=== PATIENT | male | born 1935 | race Caucasian/White ===

== ENCOUNTER 2020-05-29 13:34 | Emergency (ER) | payer OTHER ==
[~2020-05-29] VITALS: Ht 188 cm; Wt 68.0 kg
[~2020-05-29 13:34] MED LIST: ATACAND4 MG; LIPITOR20 MG
== END 2020-05-29 18:15 | disposition home or self-care (01) ==
LOC: ER 13:34
DX: G45.8 Other transient cerebral ischemic attacks and related syndromes (principal); M62.81 Muscle weakness (generalized); R20.0 Anesthesia of skin; I10 Essential (primary) hypertension; Z03.818 Encounter for observation for suspected exposure to other biological agents ruled out

== ENCOUNTER 2020-08-25 11:01 | Outpatient (CLI) | payer OTHER | END 2020-08-25 11:15 | disposition home or self-care (01) | LOC: NUCLEAR 11:01 | PROVIDERS: ATTEND Internal Medicine Cardiovascular Disease | DX: I48.91 Unspecified atrial fibrillation (principal) ==

== ENCOUNTER 2020-12-01 08:00 | Outpatient (CLI) | payer OTHER | END 2020-12-01 08:30 | disposition home or self-care (01) | LOC: PPH VACUNA 08:00 | DX: Z23 Encounter for immunization (principal) ==

== ENCOUNTER → 2021-01-11 13:34 | Outpatient (CLI) | payer OTHER | END | disposition home or self-care (01) | LOC: LAB 13:34 | PROVIDERS: ATTEND Radiology Diagnostic Radiology | DX: K40.31 Unilateral inguinal hernia, with obstruction, without gangrene, recurrent (principal) ==

== ENCOUNTER 2021-01-15 08:45 | Outpatient (CLI) | payer OTHER | END 2021-01-15 08:52 | disposition home or self-care (01) | LOC: TOM 08:45 | PROVIDERS: ATTEND Surgery | DX: K59.09 Other constipation (principal); K40.31 Unilateral inguinal hernia, with obstruction, without gangrene, recurrent; K76.0 Fatty (change of) liver, not elsewhere classified; K57.90 Diverticulosis of intestine, part unspecified, without perforation or abscess without bleeding | CPT/HCPCS: 74177; Q9965 ==

== ENCOUNTER → 2024-01-05 | Emergency (ER) | payer OTHER ==
[~2024-01-05] VITALS: Ht 180.3 cm; Wt 66.7 kg
[~2024-01-05] MED LIST changes: +AMLODIPINE BESYL5 MG PO; +ATORVASTATIN CA40 MG PO; +DIOVAN40 MG; +ECOTRIN81 MG; +KETOROLAC TROMETHAMINE 30 MG VIAL IV STA; +RINGERS SOLUTION,LACTATED 1,000 ML IV STA; +SYNTHROID75 MCG; +TRAMADOL HCL 50 MG TABLET PO ONE
[2024-01-05 23:09] LABS: HEMATOCRIT 40.4 % (39.0-48.0); HEMOGLOBIN 14.1 g/dL (13-16.00); MEAN CORPUSCULAR HEMOGLOBIN 30.3 pg (27.00-32.0); MEAN CORPUSCULAR HGB CONC 34.8 g/dl (32.0-36.0); PLATELET COUNT 133 K/uL (150-450); RED BLOOD COUNT 4.65 M/uL (4.00-6.00); RED CELL DISTRIBUTION WIDTH 14.9 % (11.5-14.5)
[2024-01-06 08:21] LABS: INR 1.17; PARTIAL THROMBOPLASTIN TIME 28.8 SECONDS (22.0-34.0); PROTHROMBIN TIME 12.6 SECONDS (9.0-11.5)
[2024-01-06 08:24] LABS: ALBUMIN 3.9 gm/dL (3.4-5.0); BILIRUBIN TOTAL 1.45 mg/dL (0.3-1.2); CALCIUM 9.4 mg/dL (8.5-10.1); CREATININE SERUM 1.23 mg/dL (0.70-1.30); GFR 55.79; GLOBULINA 3.2 G/DL (2.4-3.5); POTASSIUM 4.04 mEq/L (3.5-5.1); TOTAL PROTEIN 7.1 gm/dL (6.4-8.2)
== END | disposition home or self-care (01) ==
LOC: ER 21:23
PROVIDERS: General Practice
DX: S00.11XA Contusion of right eyelid and periocular area, initial encounter (principal); W06.XXXA Fall from bed, initial encounter; Y93.89 Activity, other specified; Y92.013 Bedroom of single-family (private) house as the place of occurrence of the external cause; E78.00 Pure hypercholesterolemia, unspecified; E03.8 Other specified hypothyroidism; I10 Essential (primary) hypertension; S12.120A Other displaced dens fracture, initial encounter for closed fracture
CPT/HCPCS: 36415; 70450; 70486; 70490; 96365; 99285; J1885

== ENCOUNTER 2024-01-11 09:22 | Inpatient (IN) | payer OTHER ==
[~2024-01-11] VITALS: Ht 175.3 cm; Wt 63.5 kg
[~2024-01-11 09:22] MED LIST changes: -AMLODIPINE BESYL5 MG PO; -ATORVASTATIN CA40 MG PO; -KETOROLAC TROMETHAMINE 30 MG VIAL IV STA; -RINGERS SOLUTION,LACTATED 1,000 ML IV STA; -TRAMADOL HCL 50 MG TABLET PO ONE
[2024-01-11] MEDS ORDERED: PIPERACILLIN/TAZOBACTAM SODIUM 4.5 GM VIAL IV SCH (09:53)
[2024-01-11] MEDS ORDERED: METHYLPREDNISOLONE SOD SUCC 40 MG VIAL IV ONE (10:00)
[2024-01-11] MEDS ORDERED: LEVALBUTEROL HCL 1.25 MG/3 ML SOLUTION IH SCH ×2 (10:00→10:15)
[2024-01-11] MEDS ORDERED: IPRATROPIUM BROMIDE 0.5 MG/2.5 ML AMPUL.NEB IH ONE (10:00)
[2024-01-11] MEDS ORDERED: 0.9 % SODIUM CHLORIDE 1,000 ML IV ONE (10:00)
[2024-01-11] MEDS ORDERED: FAMOtidine 10 MG/ML (4ML VIAL) IV ONE (10:00)
[2024-01-11 10:15] LABS: ABG PH 7.473 (7.35-7.45); ABG pCO2 39.6 mmHg (35-45); BASE EXCESS 4.5 mmol/l; BICARBONATE 28.4 mmol/l (23-25); SaO2 76.2 %; Tco2 29.6 mmol/l
[2024-01-11 10:20] LABS: HEMATOCRIT 38.1 % (39.0-48.0); HEMOGLOBIN 13.1 g/dL (13-16.00); MEAN CELL VOLUME 87.5 fL (80.0-100.00); MEAN CORPUSCULAR HEMOGLOBIN 30.1 pg (27.00-32.0); MEAN CORPUSCULAR HGB CONC 34.4 g/dl (32.0-36.0); PLATELET COUNT 171 K/uL (150-450); RED BLOOD COUNT 4.35 M/uL (4.00-6.00); RED CELL DISTRIBUTION WIDTH 14.4 % (11.5-14.5)
[2024-01-11 10:23] LABS: ERYTHROCYTE SEDIMENTATION RATE 50 mm/hr
[2024-01-11 11:37] LABS: INR 1.08; PARTIAL THROMBOPLASTIN TIME 27.8 SECONDS (22.0-34.0); PROTHROMBIN TIME 11.7 SECONDS (9.0-11.5)
[2024-01-11 11:42] LABS: PH,URINE 5.5 (5.0-8.0); URINE APPEARANCE Clear; URINE BILIRRUBIN Negative (NEGATIVE); URINE BLOOD Negative; URINE COLOR Dark Yellow; URINE GLUCOSE Negative (NEGATIVE); URINE KETONE Trace (NEGATIVE); URINE LEUKOCYTE Negative; URINE NITRATE Negative
[2024-01-11 11:42] LABS: ALBUMIN 3.1 gm/dL (3.4-5.0); BILIRUBIN TOTAL 1.4 mg/dL (0.3-1.2); CALCIUM 9.4 mg/dL (8.5-10.1); CREATININE SERUM 1.03 mg/dL (0.70-1.30); GFR 68.47; GLOBULINA 3.9 G/DL (2.4-3.5); POTASSIUM 3.41 mEq/L (3.5-5.1)
[2024-01-11 11:46] LABS: URINE BACTERIA 21.4 uL (0.0-1933); URINE EPITHELIAL CELLS 3.2 uL (0.0-38.8); URINE RBC 12.8 uL (0.0-20.8); URINE WBC 9.4 uL (0.0-23.2)
[2024-01-11 12:12] LABS: C-REACTIVE PROTEIN 16.6 MG/DL (0.00-0.29)
[2024-01-11 12:24] LABS: D DIMER 4.05 MG/L
[2024-01-11 12:41] LABS: URINE CAST 0.45 uL (0.0-1.40); URINE PROTEIN 100 (NEGATIVE)
[2024-01-11 12:42] LABS: ABG PO2 37.3 mmHg (80-100); allen test SATISFACTORY; puncture site RADIAL RIGHT
[2024-01-11 13:00] LABS: ABG PH 7.483 (7.35-7.45); ABG PO2 184.8 mmHg (80-100); ABG pCO2 36.2 mmHg (35-45); BASE EXCESS 3.3 mmol/l; BICARBONATE 26.6 mmol/l (23-25); SaO2 99.7 %; Tco2 27.7 mmol/l; allen test SATISFACTORY; o2 32 %; puncture site RADIAL RIGHT
[2024-01-11 13:00] LABS: o2 21 %
[2024-01-11] MEDS ORDERED: ATORVASTATIN CA40 MG PO (14:28)
[2024-01-11] MEDS ORDERED: AMLODIPINE BESYL5 MG PO (14:28)
[2024-01-11] MEDS ORDERED: VANCOMYCIN HCL 1,000 MG VIAL IV SCH (19:42)
[2024-01-11] MEDS ORDERED: ONDANSETRON HCL 4 MG in 0.9 % SODIUM CHLORIDE 50 ML IV PRN (19:45)
[2024-01-11] MEDS ORDERED: MEROPENEM 500 MG/VIAL VIAL IV SCH (20:00)
[2024-01-11] MEDS ORDERED: ENALAPRILAT DIHYDRATE 1.25 MG/ML VIAL IV PRN (20:00)
[2024-01-11] MEDS ORDERED: ACETAMINOPHEN 500 MG GEL..CAP PO PRN (20:00)
[2024-01-11 20:56] VITALS: BP 117/90
[2024-01-11 20:59] LABS: INR 1.1; PROTHROMBIN TIME 11.9 SECONDS (9.0-11.5)
[2024-01-11] MEDS ORDERED: FUROsemide 20 MG/2 ML VIAL IV SCH (21:00)
[2024-01-11] MEDS ORDERED: IPRATROPIUM BROMIDE 0.5 MG/2.5 ML AMPUL.NEB IH SCH (21:00)
[2024-01-11 21:01] LABS: MAGNESIUM 2.2 mg/dL (1.8-2.4); PHOSPHOROUS 4.1 mg/dL (2.5-4.9)
[2024-01-11 21:11] LABS: D DIMER 2.32 MG/L; PARTIAL THROMBOPLASTIN TIME 28.6 SECONDS (22.0-34.0)
[2024-01-11] MEDS ORDERED: POTASSIUM CHLORIDE 20MEQ/100ML H2O PB IV ONE (21:45)
[2024-01-11 23:30] VITALS: BP 133/93; O2SAT 98
[2024-01-12] VITALS (9 sets, daily range): BP systolic 111–147; BP diastolic 85–100; O2SAT 95–100
[2024-01-12] MEDS ORDERED: LEVOTHYROXINE SODIUM 75 MCG TABLET PO SCH (06:00)
[2024-01-12] MEDS ORDERED: ATORVASTATIN CALCIUM 20 MG TABLET PO SCH (09:00)
[2024-01-12] MEDS ORDERED: FAMOTIDINE/PF 20 MG in 0.9 % SODIUM CHLORIDE 8 ML IV PUSH SCH (09:00)
[2024-01-12] MEDS ORDERED: ENOXAPARIN SODIUM 40 MG/0.4 ML SYRINGE SUBCUTANEO SCH (09:00)
[2024-01-12 09:08] LABS: CHOL HDL RATIO 1.8 (0-5.0); TSH 0.911 uIU/mL (0.358-3.74)
[2024-01-12 12:34] LABS: ALBUMIN 2.8 gm/dL (3.4-5.0); BILIRUBIN TOTAL 1.31 mg/dL (0.3-1.2); CALCIUM 9.2 mg/dL (8.5-10.1); CREATININE SERUM 1.16 mg/dL (0.70-1.30); GFR 59.7; GLOBULINA 3.1 G/DL (2.4-3.5); POTASSIUM 3.45 mEq/L (3.5-5.1); TOTAL PROTEIN 5.9 gm/dL (6.4-8.2)
[2024-01-12] MEDS ORDERED: ALBUTEROL SULFATE 3 ML/2.5 MG AMPUL.NEB IH SCH (14:00)
[2024-01-12] MEDS ORDERED: SODIUM CHLORIDE FOR INHALATION 1 VIAL.NEB IH SCH (17:00)
[2024-01-13] VITALS (7 sets, daily range): BP systolic 125–154; BP diastolic 85–97; O2SAT 98–100
[2024-01-13] MEDS ORDERED: LEVOTHYROXINE SODIUM 88 MCG TABLET PO SCH (06:00)
[2024-01-13 06:31] LABS: HEMATOCRIT 36.4 % (39.0-48.0); HEMOGLOBIN 12.7 g/dL (13-16.00); MEAN CELL VOLUME 86.9 fL (80.0-100.00); MEAN CORPUSCULAR HEMOGLOBIN 30.3 pg (27.00-32.0); MEAN CORPUSCULAR HGB CONC 34.8 g/dl (32.0-36.0); PLATELET COUNT 186 K/uL (150-450); RED BLOOD COUNT 4.19 M/uL (4.00-6.00); RED CELL DISTRIBUTION WIDTH 14.2 % (11.5-14.5)
[2024-01-13 07:04] LABS: ALBUMIN 2.8 gm/dL (3.4-5.0); BILIRUBIN TOTAL 1.26 mg/dL (0.3-1.2); CALCIUM 9.6 mg/dL (8.5-10.1); CREATININE SERUM 0.98 mg/dL (0.70-1.30); GFR 72.52; GLOBULINA 3.2 G/DL (2.4-3.5); POTASSIUM 3.57 mEq/L (3.5-5.1)
[2024-01-13] MEDS ORDERED: ENOXAPARIN SODIUM 30 MG/0.3 ML SYRINGE SUBCUTANEO SCH (09:00)
[2024-01-13 09:16] LABS: MYCOPLASMA PNEUMONIAE IGM NON REACTIVE (NO REACTIVE)
[2024-01-14] VITALS (7 sets, daily range): BP systolic 110–146; BP diastolic 82–115; O2SAT 95–100
[2024-01-14] MEDS ORDERED: 0.9 % SODIUM CHLORIDE 1,000 ML IV SCH (11:30)
[2024-01-14] MEDS ORDERED: CEFTRIAXONE SODIUM 2,000 MG VIAL IV SCH (17:00)
[2024-01-14] MEDS ORDERED: FLUCONAZOLE IN NACL,ISO-OSM 400 MG/200 ML PIGGYBAG IV SCH (18:00)
[2024-01-15 04:00] VITALS: BP 139/100; O2SAT 98
[2024-01-15 06:54] LABS: HEMATOCRIT 36.9 % (39.0-48.0); HEMOGLOBIN 12.5 g/dL (13-16.00); MEAN CELL VOLUME 87.6 fL (80.0-100.00); MEAN CORPUSCULAR HEMOGLOBIN 29.6 pg (27.00-32.0); MEAN CORPUSCULAR HGB CONC 33.8 g/dl (32.0-36.0); PLATELET COUNT 222 K/uL (150-450); RED BLOOD COUNT 4.22 M/uL (4.00-6.00); RED CELL DISTRIBUTION WIDTH 14.2 % (11.5-14.5)
[2024-01-15 06:58] LABS: CALCIUM 9.3 mg/dL (8.5-10.1); CREATININE SERUM 0.84 mg/dL (0.70-1.30); GFR 86.64; POTASSIUM 3.29 mEq/L (3.5-5.1)
[2024-01-15 07:04] VITALS: BP 139/103; O2SAT 96
[2024-01-15] MEDS ORDERED: POTASSIUM CHLORIDE 10 MEQ CAPSULE PO ONE (08:30)
[2024-01-15] MEDS ORDERED: FLUCONAZOLE IN NACL,ISO-OSM 100 ML IV SCH (09:00)
[2024-01-15] MEDS ORDERED: POTASSIUM CHLORIDE IN WATER 40 MEQ/100 ML PIGGYBAG IV NR (10:00)
[2024-01-15 14:47] VITALS: BP 153/94; O2SAT 97
[2024-01-15 15:39] VITALS: BP 131/93; O2SAT 99
[2024-01-15 20:00] VITALS: BP 139/99; O2SAT 98
[2024-01-15 23:31] VITALS: BP 136/41; O2SAT 99
[2024-01-16 06:15] VITALS: BP 156/125; O2SAT 100
[2024-01-16 06:49] VITALS: BP 149/99; O2SAT 100
[2024-01-16 07:42] LABS: HEMATOCRIT 37.5 % (39.0-48.0); HEMOGLOBIN 12.7 g/dL (13-16.00); MEAN CELL VOLUME 86.4 fL (80.0-100.00); MEAN CORPUSCULAR HEMOGLOBIN 29.3 pg (27.00-32.0); MEAN CORPUSCULAR HGB CONC 33.9 g/dl (32.0-36.0); PLATELET COUNT 215 K/uL (150-450); RED BLOOD COUNT 4.34 M/uL (4.00-6.00); RED CELL DISTRIBUTION WIDTH 14.7 % (11.5-14.5)
[2024-01-16] MEDS ORDERED: IPRATROPIUM/ALBUTEROL SULFATE 3 ML AMPUL.NEB IH SCH (09:00)
[2024-01-16 09:06] LABS: CALCIUM 9.8 mg/dL (8.5-10.1); CREATININE SERUM 0.99 mg/dL (0.70-1.30); GFR 71.67; POTASSIUM 3.25 mEq/L (3.5-5.1)
[2024-01-16] MEDS ORDERED: POTASSIUM CHLORIDE 20MEQ/100ML H2O PB IV NR (13:00)
[2024-01-16 13:58] VITALS: BP 115/75; O2SAT 100
[2024-01-16 15:27] VITALS: BP 128/98; BP 138/87; O2SAT 100
[2024-01-16 20:00] VITALS: BP 129/65; O2SAT 100
[2024-01-17] VITALS (7 sets, daily range): BP systolic 110–142; BP diastolic 86–95; O2SAT 95–100
[2024-01-17 07:49] LABS: ALBUMIN 3.1 gm/dL (3.4-5.0); BILIRUBIN TOTAL 0.96 mg/dL (0.3-1.2); CALCIUM 9.9 mg/dL (8.5-10.1); CREATININE SERUM 0.9 mg/dL (0.70-1.30); GFR 80.01; GLOBULINA 4.1 G/DL (2.4-3.5); MAGNESIUM 2.8 mg/dL (1.8-2.4); PHOSPHOROUS 2.9 mg/dL (2.5-4.9); POTASSIUM 3.38 mEq/L (3.5-5.1); TOTAL PROTEIN 7.2 gm/dL (6.4-8.2)
[2024-01-17 07:51] LABS: C-REACTIVE PROTEIN 13.4 MG/DL (0.00-0.29)
[2024-01-17 07:53] LABS: HEMATOCRIT 42.8 % (39.0-48.0); HEMOGLOBIN 14.1 g/dL (13-16.00); MEAN CELL VOLUME 88.8 fL (80.0-100.00); MEAN CORPUSCULAR HEMOGLOBIN 29.2 pg (27.00-32.0); MEAN CORPUSCULAR HGB CONC 32.8 g/dl (32.0-36.0); PLATELET COUNT 235 K/uL (150-450); RED BLOOD COUNT 4.83 M/uL (4.00-6.00); RED CELL DISTRIBUTION WIDTH 14.4 % (11.5-14.5)
[2024-01-17 09:24] LABS: PH,URINE 5.5 (5.0-8.0); URINE APPEARANCE Clear; URINE BILIRRUBIN Negative (NEGATIVE); URINE BLOOD Moderate; URINE COLOR Dark Yellow; URINE GLUCOSE Negative (NEGATIVE); URINE KETONE Trace (NEGATIVE); URINE LEUKOCYTE Small; URINE NITRATE Negative
[2024-01-17 09:29] LABS: URINE BACTERIA 89.4 uL (0.0-1933); URINE EPITHELIAL CELLS 7.8 uL (0.0-38.8); URINE RBC 550.4 uL (0.0-20.8); URINE WBC 88.2 uL (0.0-23.2)
[2024-01-17 09:52] LABS: URINE CAST 0.45 uL (0.0-1.40); URINE PROTEIN 100 (NEGATIVE)
[2024-01-17] MEDS ORDERED: POTASSIUM CHLORIDE IN WATER 40 MEQ/100 ML PIGGYBAG IV NR (10:00)
[2024-01-18 04:00] VITALS: BP 132/97; O2SAT 95
[2024-01-18 07:38] VITALS: BP 126/95; O2SAT 93
[2024-01-18 12:00] VITALS: BP 113/86; O2SAT 95
[2024-01-18] MEDS ORDERED: IPRATROPIUM/ALBUTEROL SULFATE 3 ML AMPUL.NEB IH SCH (12:00)
[2024-01-18] MEDS ORDERED: AMLODIPINE BESYLATE 5 MG TABLET PO NR (12:50)
[2024-01-18 15:16] VITALS: BP 113/86; O2SAT 100
[2024-01-18 20:00] VITALS: BP 97/84; O2SAT 100
[2024-01-18 23:40] VITALS: BP 95/66; O2SAT 96
[2024-01-19 04:31] VITALS: BP 113/99; O2SAT 94
[2024-01-19 07:20] VITALS: BP 122/97; O2SAT 100
[2024-01-19 08:27] LABS: HEMATOCRIT 39.9 % (39.0-48.0); HEMOGLOBIN 13.3 g/dL (13-16.00); MEAN CELL VOLUME 86.9 fL (80.0-100.00); MEAN CORPUSCULAR HGB CONC 33.4 g/dl (32.0-36.0); PLATELET COUNT 236 K/uL (150-450); RED BLOOD COUNT 4.59 M/uL (4.00-6.00); RED CELL DISTRIBUTION WIDTH 15.1 % (11.5-14.5)
[2024-01-19] MEDS ORDERED: AMLODIPINE BESYLATE 5 MG TABLET PO SCH (09:00)
[2024-01-19 09:02] LABS: ALBUMIN 2.9 gm/dL (3.4-5.0); BILIRUBIN TOTAL 0.97 mg/dL (0.3-1.2); CALCIUM 9.9 mg/dL (8.5-10.1); CREATININE SERUM 0.85 mg/dL (0.70-1.30); GFR 85.46; POTASSIUM 3.03 mEq/L (3.5-5.1); TOTAL PROTEIN 6.9 gm/dL (6.4-8.2)
[2024-01-19 13:00] VITALS: BP 106/70; O2SAT 95
[2024-01-19 16:00] VITALS: BP 94/69; O2SAT 95
[2024-01-19 20:00] VITALS: BP 117/80; O2SAT 98
[2024-01-19 23:09] VITALS: BP 120/90; O2SAT 95
[2024-01-20 04:00] VITALS: BP 125/91; O2SAT 96
[2024-01-20 07:35] VITALS: BP 114/94; O2SAT 94
[2024-01-20 09:25] LABS: HEMATOCRIT 41.6 % (39.0-48.0); HEMOGLOBIN 13.6 g/dL (13-16.00); MEAN CELL VOLUME 89.7 fL (80.0-100.00); MEAN CORPUSCULAR HEMOGLOBIN 29.3 pg (27.00-32.0); MEAN CORPUSCULAR HGB CONC 32.6 g/dl (32.0-36.0); PLATELET COUNT 250 K/uL (150-450); RED BLOOD COUNT 4.64 M/uL (4.00-6.00); RED CELL DISTRIBUTION WIDTH 14.8 % (11.5-14.5)
[2024-01-20 10:39] LABS: ALBUMIN 2.8 gm/dL (3.4-5.0); BILIRUBIN TOTAL 0.74 mg/dL (0.3-1.2); CALCIUM 10.2 mg/dL (8.5-10.1); CREATININE SERUM 0.9 mg/dL (0.70-1.30); GFR 80.01; GLOBULINA 3.8 G/DL (2.4-3.5); MAGNESIUM 2.7 mg/dL (1.8-2.4); PHOSPHOROUS 3.1 mg/dL (2.5-4.9); POTASSIUM 3.1 mEq/L (3.5-5.1); TOTAL PROTEIN 6.6 gm/dL (6.4-8.2)
[2024-01-20] MEDS ORDERED: POTASSIUM CHLORIDE IN WATER 100 ML IV NR ×2 (11:00→12:00)
[2024-01-20 12:00] VITALS: BP 11/96; O2SAT 92
[2024-01-20] MEDS ORDERED: PANTOPRAZOLE SODIUM 40 MG/VIAL VIAL IV NR (12:00)
[2024-01-20] MEDS ORDERED: DEXTROSE 5 % IN WATER 1,000 ML IV SCH (12:15)
[2024-01-20 16:00] VITALS: BP 147/79; O2SAT 95
[2024-01-20 20:28] VITALS: BP 103/89; O2SAT 98
[2024-01-20] MEDS ORDERED: PANTOPRAZOLE SODIUM 40 MG/VIAL VIAL IV SCH (21:00)
[2024-01-20 23:27] VITALS: BP 101/75; O2SAT 100
[2024-01-21 04:00] VITALS: BP 119/89; O2SAT 92
[2024-01-21 07:30] VITALS: BP 119/89; O2SAT 95
[2024-01-21] MEDS ORDERED: FUROsemide 20 MG/2 ML VIAL IV SCH (09:00)
[2024-01-21 09:18] LABS: HEMATOCRIT 39.1 % (39.0-48.0); MEAN CELL VOLUME 89.3 fL (80.0-100.00); MEAN CORPUSCULAR HEMOGLOBIN 29.6 pg (27.00-32.0); MEAN CORPUSCULAR HGB CONC 33.2 g/dl (32.0-36.0); PLATELET COUNT 234 K/uL (150-450); RED BLOOD COUNT 4.38 M/uL (4.00-6.00); RED CELL DISTRIBUTION WIDTH 14.6 % (11.5-14.5)
[2024-01-21 12:00] VITALS: BP 114/81; O2SAT 95
[2024-01-21 12:58] LABS: ALBUMIN 2.7 gm/dL (3.4-5.0); BILIRUBIN TOTAL 0.81 mg/dL (0.3-1.2); CALCIUM 9.3 mg/dL (8.5-10.1); CREATININE SERUM 0.86 mg/dL (0.70-1.30); GFR 84.32; GLOBULINA 3.8 G/DL (2.4-3.5); POTASSIUM 3.69 mEq/L (3.5-5.1); TOTAL PROTEIN 6.5 gm/dL (6.4-8.2)
[2024-01-21 15:36] VITALS: BP 110/92; O2SAT 98
[2024-01-21 18:13] VITALS: BP 116/80; O2SAT 95
[2024-01-22 01:53] VITALS: BP 95/50; O2SAT 96
[2024-01-22 08:52] VITALS: BP 92/65
[2024-01-22 17:41] VITALS: BP 130/90; O2SAT 94
[2024-01-23] VITALS (9 sets, daily range): BP systolic 88–129; BP diastolic 60–82; O2SAT 90–100
[2024-01-23] MEDS ORDERED: 0.9 % SODIUM CHLORIDE 1,000 ML IV SCH (10:30)
[2024-01-24] VITALS (9 sets, daily range): BP systolic 92–117; BP diastolic 61–67; O2SAT 83–100
[2024-01-24 06:26] LABS: CALCIUM 8.5 mg/dL (8.5-10.1); CREATININE SERUM 0.81 mg/dL (0.70-1.30); GFR 90.35; POTASSIUM 3.61 mEq/L (3.5-5.1)
[2024-01-24 06:48] LABS: HEMATOCRIT 33.5 % (39.0-48.0); HEMOGLOBIN 11.2 g/dL (13-16.00); MEAN CELL VOLUME 88.5 fL (80.0-100.00); MEAN CORPUSCULAR HEMOGLOBIN 29.7 pg (27.00-32.0); MEAN CORPUSCULAR HGB CONC 33.5 g/dl (32.0-36.0); PLATELET COUNT 192 K/uL (150-450); RED BLOOD COUNT 3.78 M/uL (4.00-6.00); RED CELL DISTRIBUTION WIDTH 14.8 % (11.5-14.5)
[2024-01-24] MEDS ORDERED: FUROsemide 20 MG/2 ML VIAL IV SCH (11:46)
[2024-01-24] MEDS ORDERED: ACETAMINOPHEN 500 MG GEL..CAP PO PRN (21:30)
[2024-01-25] VITALS (10 sets, daily range): BP systolic 84–106; BP diastolic 37–74; O2SAT 88–99
[2024-01-25 07:43] LABS: HEMATOCRIT 32.1 % (39.0-48.0); HEMOGLOBIN 10.8 g/dL (13-16.00); MEAN CELL VOLUME 87.2 fL (80.0-100.00); MEAN CORPUSCULAR HEMOGLOBIN 29.4 pg (27.00-32.0); MEAN CORPUSCULAR HGB CONC 33.7 g/dl (32.0-36.0); PLATELET COUNT 170 K/uL (150-450); RED BLOOD COUNT 3.68 M/uL (4.00-6.00); RED CELL DISTRIBUTION WIDTH 14.9 % (11.5-14.5)
[2024-01-25 08:13] LABS: ALBUMIN 1.9 gm/dL (3.4-5.0); BILIRUBIN TOTAL 0.54 mg/dL (0.3-1.2); CALCIUM 8.7 mg/dL (8.5-10.1); CREATININE SERUM 0.93 mg/dL (0.70-1.30); GFR 77.04; GLOBULINA 3.3 G/DL (2.4-3.5); POTASSIUM 3.52 mEq/L (3.5-5.1); TOTAL PROTEIN 5.2 gm/dL (6.4-8.2)
[2024-01-25] MEDS ORDERED: MIDODRINE HCL 5 MG TABLET PO SCH (10:38)
[2024-01-25] MEDS ORDERED: MORPHINE SULFATE 4 MG/ML CARTRIDGE IV ONE (13:30)
[2024-01-25] MEDS ORDERED: FUROsemide 20 MG/2 ML VIAL IV SCH (14:21)
[2024-01-26] VITALS (10 sets, daily range): BP systolic 98–117; BP diastolic 58–74; O2SAT 85–100
[2024-01-26] MEDS ORDERED: MORPHINE SULFATE 50 MG in 0.9 % SODIUM CHLORIDE 50 ML IV SCH (11:30)
[2024-01-26] MEDS ORDERED: PIPERACILLIN/TAZOBACTAM SODIUM 3.375 GM in DEXTROSE 5 % IN WATER 100 ML IV SCH (20:41)
[2024-01-26] MEDS ORDERED: MEROPENEM 500 MG/VIAL VIAL IV SCH (20:43)
[2024-01-27] VITALS (7 sets, daily range): BP systolic 60–90; BP diastolic 40–66; O2SAT 0–97
== END 2024-01-27 14:24 | disposition expired | DRG 177 ==
LOC: ER 09:22 → ICU 21:53 → MEDI 01-21 16:01
PROVIDERS: Emergency Medicine; General Practice; Internal Medicine; Internal Medicine Critical Care Medicine; Internal Medicine Infectious Disease; ADMIT Internal Medicine; ATTEND Internal Medicine
PROC: BB24YZZ Computerized Tomography (CT Scan) of Bilateral Lungs using Other Contrast (ICD-10-PCS; principal; 2024-01-11)
PROC: BR20ZZZ Computerized Tomography (CT Scan) of Cervical Spine (ICD-10-PCS; 2024-01-11)
PROC: B246ZZZ Ultrasonography of Right and Left Heart (ICD-10-PCS; 2024-01-11)
PROC: 4A12X4Z Monitoring of Cardiac Electrical Activity, External Approach (ICD-10-PCS; 2024-01-11)
PROC: B020YZZ Computerized Tomography (CT Scan) of Brain using Other Contrast (ICD-10-PCS; 2024-01-11)
PROC: 3E0F7GC Introduction of Other Therapeutic Substance into Respiratory Tract, Via Natural or Artificial Opening (ICD-10-PCS; 2024-01-11)
PROC: 0T9B70Z Drainage of Bladder with Drainage Device, Via Natural or Artificial Opening (ICD-10-PCS; 2024-01-11)
PROC: 0DH67UZ Insertion of Feeding Device into Stomach, Via Natural or Artificial Opening (ICD-10-PCS; 2024-01-15)
PROC: 3E0G76Z Introduction of Nutritional Substance into Upper GI, Via Natural or Artificial Opening (ICD-10-PCS; 2024-01-15)
DX: J15.5 Pneumonia due to Escherichia coli (principal); B37.1 Pulmonary candidiasis; I50.33 Acute on chronic diastolic (congestive) heart failure; S12.030A Displaced posterior arch fracture of first cervical vertebra, initial encounter for closed fracture; S12.100A Unspecified displaced fracture of second cervical vertebra, initial encounter for closed fracture; J91.8 Pleural effusion in other conditions classified elsewhere; J98.19 Other pulmonary collapse; T17.890A Other foreign object in other parts of respiratory tract causing asphyxiation, initial encounter; J98.11 Atelectasis; E46 Unspecified protein-calorie malnutrition; I38 Endocarditis, valve unspecified; K92.1 Melena; J20.9 Acute bronchitis, unspecified; I48.91 Unspecified atrial fibrillation; E87.6 Hypokalemia; I95.9 Hypotension, unspecified; S05.11XA Contusion of eyeball and orbital tissues, right eye, initial encounter; Y95 Nosocomial condition; I11.0 Hypertensive heart disease with heart failure; E03.9 Hypothyroidism, unspecified; E78.5 Hyperlipidemia, unspecified; R41.0 Disorientation, unspecified; Z68.20 Body mass index [BMI] 20.0-20.9, adult; Z66 Do not resuscitate; Z95.2 Presence of prosthetic heart valve; W19.XXXA Unspecified fall, initial encounter; Y93.9 Activity, unspecified; Y92.9 Unspecified place or not applicable; Y99.9 Unspecified external cause status; Z78.1 Physical restraint status